=== PATIENT | female | born 1980 | race Caucasian/White ===

== ENCOUNTER 2020-02-26 12:59 | Emergency (ER) | payer OTHER ==
[2020-02-26] MEDS ORDERED: Inapsine 5 MG/2 ML IV ONE (13:17)
[2020-02-26] MEDS ORDERED: BENADRYL 50 MG/ML IV ONE (13:19)
[2020-02-26 13:30] VITALS: BP 127/80; PULSE 107; O2SAT 98
[2020-02-26 13:35] LABS: Appearance CLEAR (CLEAR); Bacteria MODERATE /HPF (NEGATIVE); Bilirubin NEGATIVE (NEGATIVE); Blood MODERATE Ery/ul (0-5); Epithelial Cells RARE /HPF (FEW); Glucose NEGATIVE (NEGATIVE); Ketones NEGATIVE (NEGATIVE); Leukocyte Esterase NEGATIVE (NEGATIVE); Mucus SLIGHT /HPF (NEGATIVE); Nitrite POSITIVE (NEGATIVE); Protein,Urine Dip NEGATIVE (Negative); Specific Gravity 1.024 (1.005-1.025); Urobilinogen NEGATIVE mg/dL (0-1)
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
[2020-02-26 13:48] LABS: Barbiturate,Urine NEGATIVE (NEGATIVE); Benzodiazepine,Urine POSITIVE (NEGATIVE); Cocaine,Urine NEGATIVE (NEGATIVE); Methadone,Urine NEGATIVE (NEGATIVE); Opiate,Urine NEGATIVE (NEGATIVE); PCP,Urine NEGATIVE (NEGATIVE); THC,Urine POSITIVE (NEGATIVE)
[2020-02-26 14:15] LABS: Amphetamine,Urine POSITIVE (NEGATIVE)
== END 2020-02-26 15:57 | disposition short-term general hospital (02) ==
LOC: ED 12:59
DX: F23 Brief psychotic disorder (principal); S40.022A Contusion of left upper arm, initial encounter; S40.021A Contusion of right upper arm, initial encounter; S80.211A Abrasion, right knee, initial encounter
CPT/HCPCS: 80307; 81001; 84703; 87077; 87086; 87186; 99284

== ENCOUNTER 2022-05-08 18:28 | Emergency (ER) | payer OTHER ==
[2022-05-08] MEDS ORDERED: CLINDAMYCIN-D5W 900 MG/50 ML*** 900 MG/50 ML BAG IV STA (19:17)
[2022-05-08] MEDS ORDERED: MORPHINE SULFATE 4 MG INJ IV ONE (19:18)
[2022-05-08] MEDS ORDERED: Zofran 4 MG/2 ML VIAL IV ONE (19:18)
[2022-05-08 19:22] LABS: Basophil (Absolute #) 0.08 x10^3/uL (0-0.4); Eosinophil % 2.2 % (0.00-5.0); Eosinophil (Absolute #) 0.34 x10^3/uL (0-0.5); Hematocrit 43.5 % (35-47); Lymphocyte (Absolute #) 2.17 x10^3/uL (1.0-4.6); Mean Cell Volume 95.4 fL (78-100); Mean Corpuscular Hemoglobin 30.7 pg (26-32); Mean Corpuscular Hgb Concent. 32.2 g/dL (32-36); Mean Platelet Volume 11.2 fL (7.5-11.0); Monocyte (Absolute #) 1.05 x10^3/uL (0.0-1.3); Monocytes % 6.8 % (0.0-12.0); Platelet Count 494 x10^3/uL (150-450); Red Blood Count 4.56 x10^6/uL (4.1-5.4); Red Cell Distribution Width 11.9 % (11.5-14.0); White Blood Count 15.5 x10^3/uL (4.0-10.5)
[2022-05-08 19:27] LABS: ALBUMIN 4.3 g/dL (3.5-5.0); ALKALINE PHOSPHATASE 91 U/L (38-126); ANION GAP 15.2 MEQ/L (5-15); BLOOD UREA NITROGEN 7 mg/dL (7-17); CHLORIDE 100 mmol/L (98-107); Calcium 9.5 mg/dL (8.4-10.2); Carbon Dioxide 26 mmol/L (22-30); Creatinine 1 0.68 mg/dL (0.52-1.04); EST GLOMERULAR FILTRATION RATE > 60.0 ML/MIN; Glucose 87 mg/dL (74-106); Potassium 3.8 mmol/L (3.5-5.1); SGOT/AST 25 U/L (14-36); SGPT/ALT 17 U/L (0-35); SODIUM 138 mmol/L (137-145)
[2022-05-08] MEDS ORDERED: Zofran 4 MG/2 ML VIAL ONE (19:27)
[2022-05-08] MEDS ORDERED: MORPHINE SULFATE 4 MG INJ ONE (19:27)
[2022-05-08] MEDS ORDERED: CLINDAMYCIN-D5W 900 MG/50 ML*** 900 MG/50 ML BAG IV ONE (19:27)
[2022-05-08 20:12] VITALS: BP 124/86; PULSE 91
[2022-05-08 20:13] VITALS: O2SAT 100
--- NOTE | 2022-05-08 20:13 | ERPHSYRPT ---
- History of Present Illness Time Seen by Provider: 05/08/22 18:33 Source: patient Exam Limitations: no limitations Patient Subjective Stated Complaint: Pt c/o of swelling and abscess looking right breast for the past 3 days and pain for the past 2 weeks Triage Nursing Assessment: Pt brought to the ER by a significant other, tachycardic, rates pain 10/10, right breast swollen and had been leaking through a pearcing site but is not at this time, pt has not worn peircings for over 5 years, has had pain for approx 2 weeks before the swelling began, pulses normal, skin n/w/d Physician History: 41 years old female with known history of MRSA presented in the ER with right barest increasing pain and swelling starting around the nipple area and gradually spreading all around circumferentially for the last 2 weeks. Patient report for the last 3 days she is having increasing pain sharp shooting moderate to severe, more with palpation and movements and seems like she is having an abscess which is ready to be lanced. Subjective feeling of fever and chills. Denies any nipple piercing recently or any other procedure done. She is not breast-feeding. Not diabetic. Timing/Duration: week(s) (2), constant, gradual onset, worse Quality: painful Severity: moderate, severe Location: other Possible Causes: no cause identified Associated Symptoms: swelling/mass/lumps Allergies/Adverse Reactions: Penicillins Allergy (Verified 05/08/22 18:47) Hx Influenza Vaccination/Date Given: No Hx Pneumococcal Vaccination/Date Given: No Travel Risk - International Travel Have you traveled outside of the country in past 3 weeks: No - Coronavirus Screening Are you exhibiting any of the following symptoms?: No Close contact with a COVID-19 positive Pt in past 14-21 Days: No - Vaccine Status Have you recieved a Covid-19 vaccination: Yes [employer]: Moderna - Vaccination Dates Date of 2cond Vaccination (if applicable): unknown - Review of Systems Constitutional: No Symptoms Eyes: No Symptoms Respiratory: No Symptoms Cardiac: No Symptoms Abdominal/Gastrointestinal: No Symptoms Genitourinary Symptoms: No Symptoms Musculoskeletal: No Symptoms Skin: Cellulitis, Induration, Rash Neurological: No Symptoms Psychological: No Symptoms Endocrine: No Symptoms Hematologic/Lymphatic: No Symptoms Immunological/Allergic: No Symptoms - Past Medical History Pertinent Past Medical History: Yes Neurological History: No Pertinent History ENT History: No Pertinent History Cardiac History: No Pertinent History Respiratory History: No Pertinent History Endocrine Medical History: No Pertinent History Musculoskeletal History: No Pertinent History GI Medical History: No Pertinent History History: No Pertinent History Psycho-Social History: Bipolar, Depression, Other Female Reproductive Disorders: No Pertinent History Other Medical History: PTSD - Past Surgical History Past Surgical History: Yes Neuro Surgical History: No Pertinent History Cardiac: No Pertinent History Respiratory: No Pertinent History Gastrointestinal: Cholecystectomy Genitourinary: No Pertinent History Musculoskeletal: No Pertinent History Female Surgical History: No Pertinent History Other Surgical History: Thought she had her gall bladder removed in 2019 but states she still has attacks and so she knows that she still has it - Social History Smoking Status: Current every day smoker How long have you smoked: years Exposure to second hand smoke: Yes Drug Use: none Patient Lives Alone: No - Female History Hx Last Menstrual Period: last week of March Hx Now: No - Nursing Vital Signs Nursing Vital Signs: Initial Vital Signs Temperature 98.5 F 05/08/22 18:34 Pulse Rate 102 H 05/08/22 18:34 Blood Pressure 103/67 05/08/22 18:34 O2 Sat by Pulse Oximetry 100 05/08/22 18:34 Pain Scale Pain Intensity 6 - Physical Exam General Appearance: no apparent distress, alert Eye Exam: PERRL/EOMI Ears, Nose, Throat Exam: normal ENT inspection Neck Exam: normal inspection, non-tender, supple, full range of motion Respiratory Exam: normal breath sounds, lungs clear Cardiovascular Exam: regular rate/rhythm, normal heart sounds Back Exam: normal inspection, normal range of motion Extremity Exam: normal inspection, normal range of motion Neurologic Exam: alert, oriented x 3, cooperative Skin Exam: normal color, warm (Diffuse swelling across breast with prominent area on the medial aspect of nipple, positive fluctuation. Increased temperature and induration around. No nipple discharge or inversion.), rash SpO2 Interpretation: normal SpO2: 100 O2 Delivery: Room Air Procedures - Incision and Drainage Time of Procedure: 19:03 Timeout: Performed Site: right breast Blade Size: other (18-gauge needle aspiration) I & D Procedure: betadine prep Results: moderate amount pus Ordered Tests: Medication Summary Discontinued Medications Generic Name Dose Route Start Last Admin Trade Name Freq PRN Reason Stop Dose Admin Hydrocodone Bitart/Acetaminophen 2 tab 05/08/22 20:43 05/08/22 20:55 Hydrocodone/Apap 5/325 Mg Tablet PO 05/08/22 20:44 Not Given SENT HOME W/ PATIENT ONE Hydrocodone Bitart/Acetaminophen Confirm 05/08/22 20:51 Hydrocodone/Apap 5/325 Mg Tablet Administered 05/08/22 20:52 Dose 2 tab .ROUTE .STK-MED ONE Clindamycin HCl/Dextrose 900 mg in 50 mls @ 100 mls/hr 05/08/22 19:17 05/08/22 20:12 Clindamycin-D5w 900 Mg/50 Ml IV 05/08/22 19:46 Infused STAT STA Infusion Clindamycin HCl/Dextrose Confirm 05/08/22 19:27 Clindamycin-D5w 900 Mg/50 Ml Administered 05/08/22 19:28 Dose 900 mg in 50 mls @ ud IV .STK-MED ONE Morphine Sulfate 4 mg 05/08/22 19:18 05/08/22 19:29 Morphine Sulfate 4 Mg/Ml Injection IV 05/08/22 19:19 4 mg STAT ONE Administration Morphine Sulfate Confirm 05/08/22 19:27 Morphine Sulfate 4 Mg/Ml Injection Administered 05/08/22 19:28 Dose 4 mg .ROUTE .STK-MED ONE Ondansetron HCl 4 mg 05/08/22 19:18 05/08/22 19:28 Ondansetron Hcl 4 Mg/2 Ml Vial IV 05/08/22 19:19 4 mg STAT ONE Administration Ondansetron HCl Confirm 05/08/22 19:27 Ondansetron Hcl 4 Mg/2 Ml Vial Administered 05/08/22 19:28 Dose 4 mg .ROUTE .STK-MED ONE Lab/Rad Data: Laboratory Result Diagrams 05/08/22 18:51 05/08/22 18:51 Laboratory Results 05/08/22 05/08/22 05/08/22 Range/Units 19:18 18:51 18:51 WBC 15.5 H (4.0-10.5) x10^3/uL RBC 4.56 (4.1-5.4) x10^6/uL Hgb 14.0 (12.0-16.0) g/dL Hct 43.5 (35-47) % MCV 95.4 (78-100) fL MCH 30.7 (26-32) pg MCHC 32.2 (32-36) g/dL RDW 11.9 (11.5-14.0) % Plt Count 494 H (150-450) x10^3/uL MPV 11.2 H (7.5-11.0) fL Gran % 76.0 H (36.0-66.0) % Immature Gran % (Auto) 0.5 H (0.00-0.4) % Nucleat RBC Rel Count 0.0 (0.00-0.1) % Eos # (Auto) 0.34 (0-0.5) x10^3/uL Immature Gran # (Auto) 0.07 H (0.00-0.03) x10^3u/L Absolute Lymphs (auto) 2.17 (1.0-4.6) x10^3/uL Absolute Monos (auto) 1.05 (0.0-1.3) x10^3/uL Absolute Nucleated RBC 0.00 (0.00-0.01) x10^3u/L Lymphocytes % 14.0 L (24.0-44.0) % Monocytes % 6.8 (0.0-12.0) % Eosinophils % 2.2 (0.00-5.0) % Basophils % 0.5 (0.0-0.4) % Absolute Granulocytes 11.80 H (1.4-6.9) x10^3/uL Basophils # 0.08 (0-0.4) x10^3/uL Sodium 138 (137-145) mmol/L Potassium 3.8 (3.5-5.1) mmol/L Chloride 100 (98-107) mmol/L Carbon Dioxide 26 (22-30) mmol/L Anion Gap 15.2 H (5-15) MEQ/L BUN 7 (7-17) mg/dL Creatinine 0.68 (0.52-1.04) mg/dL Estimated GFR > 60.0 ML/MIN Glucose 87 (74-106) mg/dL Lactic Acid 1.6 (0.4-2.0) Calcium 9.5 (8.4-10.2) mg/dL Total Bilirubin 0.30 (0.2-1.3) mg/dL AST 25 (14-36) U/L ALT 17 (0-35) U/L Alkaline Phosphatase 91 (38-126) U/L Serum Total Protein 8.0 (6.3-8.2) g/dL Albumin 4.3 (3.5-5.0) g/dL - Progress Progress: improved, pain not gone completely Progress Note: 05/08/22 20:46 She is given morphine for symptomatic relief. Needle aspiration done with almo st 15 cc pus drained. Patient feeling better on reevaluation. Given a dose of IV clindamycin. Has white count of 15, normal lactate, grossly unremarkable chemistries. Discussed with Dr. Kumar Mendoza, recommended outpatient follow- up Wednesday. We will give her pain medication and antibiotics to go home. Recommended warm compresses. Discussed signs symptoms of worsening needing return to ER which she seems understanding. Counseled pt/family regarding: lab results, diagnosis, need for follow-up - Departure Departure Disposition: Home Clinical Impression: Breast abscess Condition: Stable Critical Care Time: No Referrals: DOCTOR,NO FAMILY [Primary Care Provider] - Follow up/PCP as directed KUMAR MENDOAZ MD [ACTIVE STAFF] - Follow up/PCP as directed (Wednesday for reevaluation) Instructions: Mastitis (DC) Additional Instructions: Take pain medications as needed. Intermittent warm compresses application. Follow-up with general surgery for reevaluation. Return to ER for increasing pain swelling redness/fever chills etc. Prescriptions: Hydrocodone/Acetaminophen [Hydrocodone-Acetamin 7.5-325] 1 each PO Q6HPRN PRN 3 Days #12 tablet MDD 4 PRN Reason: Pain clindamycin HCL [Clindamycin HCl] 300 mg PO QID 7 Days #28 cap
[2022-05-08] MEDS ORDERED: NORCO 5/325 MG PO ONE (20:43)
[2022-05-08] MEDS ORDERED: NORCO 5/325 MG ONE (20:51)
== END 2022-05-08 21:10 | disposition home or self-care (01) ==
LOC: ED 18:28
DX: N61.1 Abscess of the breast and nipple (principal); N64.4 Mastodynia; Z72.0 Tobacco use; Z79.891 Long term (current) use of opiate analgesic
CPT/HCPCS: 10160; 36000; 36415; 80053; 83605; 85025; 87040; 96365; 96374; 96375; 99284; J2270; J2405; A9270-GY